=== PATIENT | female | born 1965 ===

== ENCOUNTER 2021-01-27 13:09 | Outpatient (CLI) | payer BC, OTHER ==
[~2021-01-27 13:09] MED LIST: ALPR0.5T7 PO; GLIP10TA13 PO; HYDR-3248 PO; INSU100V13 SQ; LEVO125T PO; LEVO200T5 PO; METH750T87 PO; OXYC-501 PO; SITA25TA PO; [UNRECOGNIZED DRUG - OTHER]
== END 2021-01-27 23:59 | disposition home or self-care (01) ==
LOC: ROC 13:09
PROVIDERS: ATTEND Radiology Radiation Oncology
DX: C34.12 Malignant neoplasm of upper lobe, left bronchus or lung (principal); E11.9 Type 2 diabetes mellitus without complications; E03.9 Hypothyroidism, unspecified; F17.210 Nicotine dependence, cigarettes, uncomplicated; E66.01 Morbid (severe) obesity due to excess calories; Z68.42 Body mass index [BMI] 45.0-49.9, adult
CPT/HCPCS: 99214; G0463

== ENCOUNTER 2021-02-18 06:33 | Day surgery (SDC) | payer BC, OTHER ==
[~2021-02-18] VITALS: Ht 167.6 cm; Wt 96.1 kg
[2021-02-18 07:33] VITALS: BP 121/76
[2021-02-18] MEDS ORDERED: MIDAZOLAM 1 MG/ML, 5ML ONE ×2 (08:30→09:05)
[2021-02-18] MEDS ORDERED: FLUMAZENIL 0.1 MG/1 ML, 5ML ONE (08:30)
[2021-02-18] MEDS ORDERED: NALOXONE 1 MG/ML, 2ML ONE (08:30)
[2021-02-18] MEDS ORDERED: FENTANYL PF 100 MCG/2ML ONE ×2 (08:31→09:05)
== END 2021-02-18 11:40 | disposition home or self-care (01) ==
LOC: OUT 06:33
PROVIDERS: ATTEND Family Medicine
DX: R91.1 Solitary pulmonary nodule (principal); C34.12 Malignant neoplasm of upper lobe, left bronchus or lung; E11.9 Type 2 diabetes mellitus without complications; E78.5 Hyperlipidemia, unspecified; F41.9 Anxiety disorder, unspecified; G47.00 Insomnia, unspecified; F17.210 Nicotine dependence, cigarettes, uncomplicated; Z79.4 Long term (current) use of insulin; Z79.891 Long term (current) use of opiate analgesic; Z79.899 Other long term (current) drug therapy; Z88.8 Allergy status to other drugs, medicaments and biological substances
CPT/HCPCS: 32408; 71045; 82962; 88305; 99156; 99157; C2613; J2250; J3010; 77012; J2310